=== PATIENT | female | born 1965 | race African-American/Black ===

== ENCOUNTER 2021-11-11 04:50 | Inpatient (IN) | payer SELFPAY ==
[2021-11-11] VITALS (36 sets, daily range): BP systolic 77–109; BP diastolic 52–74
[~2021-11-11] VITALS: Ht 165.1 cm; Wt 61.2 kg
[2021-11-11] MEDS ORDERED: NOREPINEPHRINE VIAL 8 MG in IV DEXTROSE 5% 250 ML IV PRN (05:15)
[2021-11-11] MEDS ORDERED: 0.9 % SODIUM CHLORIDE 10 ML DISP.SYRIN. IV PRN (05:45)
[2021-11-11 05:58] LABS: CALCIUM 6.7 mg/dL (8.5-10.1); GFR 69.4; MAGNESIUM 1.5 mg/dL (1.8-2.4); PHOSPHORUS 2.8 mg/dL (2.6-4.7); POTASSIUM 3.9 mmol/L (3.5-5.1)
[2021-11-11 06:10] LABS: BASO % 0 % (0-3); EOS % 0 % (0-3); HEMATOCRIT 18.1 % (36.0-47.0); LYMPH # 2.4 x10^3/uL (1.0-4.8); LYMPH % 8 % (24-48); MEAN CORPUSCULAR HEMOGLOBIN 26 pg (25-35); MEAN CORPUSCULAR HGB CONC 29 g/dL (31-37); MEAN CORPUSCULAR VOLUME 90 fL (79-100); MONO # 0.9 x10^3/uL (0.0-1.1); MONO % 3 % (0-9); NEUT # 26.9 x10^3/uL (1.8-7.7); NEUT % 89 % (31-73); PLATELET COUNT 484 x10^3/uL (140-400); RED BLOOD COUNT 2.02 x10^6/uL (3.50-5.40); RED CELL DISTRIBUTION WIDTH 23.9 % (11.5-14.5); WHITE BLOOD COUNT 30.2 x10^3/uL (4.0-11.0)
[2021-11-11 06:17] LABS: HEMOGLOBIN 5.3 g/dL (12.0-15.5)
[2021-11-11] MEDS ORDERED: IV NORMAL SALINE 1000ML BAG 1,000 ML IV ONE ×2 (07:00)
--- NOTE | 2021-11-11 07:13 | PDOC1 ---
History and Physical Date of Admission Date of Admission DATE: 11/11/21 TIME: 07:09 Identification/Chief Complaint Chief Complaint Found down Source Source: Chart review History of Present Illness History of Present Illness Ms Mcintosh is a 56 yo female with PMHx HTN who was brought to [facility] in [place], [place] after she was found down by EMS because the neighbors called the police due to a dog barking our patient was found on the ground in the doorway half and half outside the house at the back door and minimally responsive given Narcan in the field by police and did not respond to this. Transferred from [facility] was found at home that was littered with liquor bottles and she was unkempt. Hypotensive on arrival 50/30 central line Levophed therapy initiated Hb noted to be 4.5. WBC 16.1, Hb 4.5, platelets 553, NA 146, K3.4, HCO3 6, anion gap 35, BUN 12, CR 1.3, AST 440, ALT 81, bilirubin 5.1, calcium 7.9, alkaline phosphatase 547, albumin 1.4, lipase 2691, ammonia 45, NT proBNP 231, urinalysis elevated specific gravity with proteinuria ketonuria bilirubin, negative nitrites negative leuk esterase. Rapid COVID 19 antigen negative. INR 1.2, D-dimer 2.23, ethanol 53 mg/Margaret, lactic acid 8.1, high-sensitivity troponin is 7 ABG 7.051/17/188 on 4 L/min nasal cannula EKG sinus rate of 73 bpm left bundle branch block QTC [address] segment elevations or TWI Chest radiograph with no acute abnormalities. CT head without acute abnormalities CT chest no pulmonary embolism CT abdomen pelvis with severe hepatic steatosis, gallstones and inflammation of the mons pubis with small 9 mm abscess along its left aspect. [facility] more awake and alert after IV fluid resuscitation still requiring low-dose Levophed to maintain blood pressure. She is able to relate that she has lost approximately 40 pounds over the last 3 months and noted painful swelling of her left labia majora and was afraid to go see a physician because she lacks insurance. She has been living in [facility] for the last 4 years has a son in [place] where she used to live and as well as [place]. She does smoke every day and drinks half a pint of alcohol at least 3 days a week. States she does not use illicit drugs. Historically she was diagnosed with hypertension and has not been on any medications for this. She had a hysterectomy over 20 years ago. Past Medical History Cardiovascular: HTN Psych: Addictions Past Surgical History Past Surgical History: Hysterectomy Family History Family History: Hypertension Social History Smoke: 1 pack per day ALCOHOL: heavy Drugs: None Current Medications Current Medications Current Medications Norepinephrine Bitartrate 8 mg/ Dextrose 258 ml @ 11.784 mls/ hr CONT PRN IV PER PROTOCOL Last administered on 11/11/21at 05:09; Start 11/11/21 at 05:15 Sodium Chloride (Normal Saline Flush) 3 ml QSHIFT PRN IV AFTER MEDS AND BLOOD DRAWS; Start 11/11/21 at 05:45 Piperacillin Sod/ Tazobactam Sod (Zosyn Per Pharmacy) 1 each PRN DAILY MC ; Start 11/11/21 at 08:00; Status UNV Sodium Chloride 1,000 ml @ 125 mls/hr 1X ONCE IV ; Start 11/11/21 at 07:00; Stop 11/11/21 at 14:59 Sodium Chloride 1,000 ml @ 1,000 mls/hr 1X ONCE IV Last administered on 11/11/21at 06:55; Start 11/11/21 at 07:00; Stop 11/11/21 at 07:59 Magnesium Sulfate 100 ml @ 25 mls/hr 1X ONCE IV ; Start 11/11/21 at 07:30; Stop 11/11/21 at 11:29 Vancomycin HCl 1.5 gm/Sodium Chloride 500 ml @ 250 mls/hr 1X ONCE IV ; Start 11/11/21 at 07:30; Stop 11/11/21 at 09:29 Vancomycin HCl (Vanco Per Pharmacy) 1 each PRN DAILY PRN MC SEE COMMENTS; Start 11/11/21 at 07:15 Multivitamins 10 ml/Thiamine HCl 100 mg/Folic Acid 1 mg/Sodium Chloride 1,011.2 ml @ 100 mls/ hr 1X ONCE IV ; Start 11/11/21 at 07:15; Stop 11/11/21 at 17:21; Status UNV Lorazepam (Ativan Inj) 1 mg PRN Q1HR PRN IV For CIWA 8-14; Start 11/11/21 at 07:15; Status UNV Lorazepam (Ativan Inj) 2 mg PRN Q1HR PRN IV For CIWA 15 or greater; Start 11/11/21 at 07:15; Status UNV Haloperidol Lactate (Haldol Inj) 5 mg PRN Q4HRS PRN IVP Hallucinatns,Confusn,Delirium; Start 11/11/21 at 07:15; Status UNV Diphenhydramine HCl (Benadryl) 25 mg PRN Q15MIN PRN IVP EPS symptoms 2'Haldol admin; Start 11/11/21 at 07:15; Status UNV Allergies Allergies: Coded Allergies: Penicillins (Verified Allergy, Intermediate, 11/11/21) ROS General: YES: Fatigue, Malaise; No: Chills, Night Sweats, Appetite, Other PSYCHOLOGICAL ROS: No: Anxiety, Behavioral Disorder, Concentration difficultie, Decreased libido, Depression, Disorientation, Hallucinations, Hostility, Irritablity, Memory difficulties, Mood Swings, Obsessive thoughts, Physical abuse, Sexual abuse, Sleep disturbances, Suicidal ideation, Other Eyes: No Blurry vision, No Decreased vision, No Double vision, No Dry eyes, No Excessive tearing, No Eye Pain, No Itchy Eyes, No Loss of vision, No Photophobia, No Scotomata, No Uses contacts, No Uses glasses, No Other HEENT: No: Heacaches, Visual Changes, Hearing change, Nasal congestion, Nasal d ischarge, Oral lesions, Sinus pain, Sore Throat, Epistaxis, Sneezing, Snoring, Tinnitus, Vertigo, Vocal changes, Other ALLERGY AND IMMUNOLOGY: No: Hives, Insect Bite Sensitivity, Itchy/Watery Eyes, Nasal Congestion, Post Nasal Drip, Seasonal Allergies, Other Hematological and Lymphatic: No: Bleeding Problems, Blood Clots, Blood Transfusions, Brusing, Night Sweats, Pallor, Swollen Lymph Nodes, Other ENDOCRINE: No: Breast Changes, Galactorrhea, Hair Pattern Changes, Hot Flashes, Malaise/lethargy, Mood Swings, Palpitations, Polydipsia/polyuria, Skin Changes, Temperature Intolerance, Unexpected Weight Changes, Other Breast: No New/Changing Breast Lumps, No Nipple changes, No Nipple discharge, No Other Respiratory: No: Cough, Hemoptysis, Orthopnea, Pleuritic Pain, Shortness of ranjit ath, SOB with excertion, Sputum Changes, Stridor, Tachypnea, Wheezing, Other Cardiovascular: No Chest Pain, No Palpitations, No Orthopnea, No Paroxysmal Noc. Dyspnea, No Edema, No Lt Headedness, No Other Gastrointestinal: No Nausea, No Vomiting, No Abdominal Pain, No Diarrhea, No Constipation, No Melena, No Hematochezia, No Other Genitourinary: No Dysuria, No Frequency, No Incontinence, No Hematuria, No Retention, No Discharge, No Urgency, No Pain, No Flank Pain, No Other, No , No , No , No , No , No , No Musculoskeletal: No Gait Disturbance, No Joint Pain, No Joint Stiffness, No Joint Swelling, No Muscle Pain, No Muscular Weakness, No Pain In:, No Swelling In:, No Other Neurological: No Behavorial Changes, No Bowel/Bladder ControlChng, No Confusion, No Dizziness, No Gait Disturbance, No Headaches, No Impaired Coord/balance, No Memory Loss, No Numbness/Tingling, No Seizures, No Speech Problems, No Tremors, No Visual Changes, No Weakness, No Other Skin: No Dry Skin, No Eczema, No Hair Changes, No Lumps, No Mole Changes, No Mottling, No Nail Changes, No Pruritus, No Rash, No Skin Lesion Changes, No Other, No Acne Physical Exam General: Alert, Oriented X3, Cooperative, mild distress HEENT: Atraumatic, PERRLA, EOMI, Other (Pale oral mucosa) Lungs: Clear to auscultation, Normal air movement Heart: S1S2, RRR, no thrills, no rubs, no gallops, no murmurs Abdomen: Normal bowel sounds, Soft, No tenderness, No hepatosplenomegaly, No masses Rectal Exam: not examined PELVIC: Swelling (Left mons pubis swollen), Tenderness Extremities: No clubbing, No cyanosis, No edema, Normal pulses, No tenderness/swelling Skin: No rashes, No breakdown, No significant lesion Neuro: Normal speech, Strength at 5/5 X4 ext, Normal tone, Sensation intact, Cranial nerves 3-12 NL, Reflexes 2+ Psych/Mental Status: Mental status NL, Mood NL Vitals Vitals Vital Signs Date Time Temp Pulse Resp B/P (MAP) Pulse Ox O2 Delivery O2 Flow Rate FiO2 11/11/21 05:30 Room Air 11/11/21 05:15 110 15 85/56 100 11/11/21 05:00 97.5 97.5 Labs Labs Laboratory Tests Test 11/11/21 05:09 11/11/21 05:10 Glucose (Fingerstick) 171 mg/dL (70-99) White Blood Count 30.2 x10^3/uL (4.0-11.0) Red Blood Count 2.02 x10^6/uL (3.50-5.40) Hemoglobin 5.3 g/dL (12.0-15.5) Hematocrit 18.1 % (36.0-47.0) Mean Corpuscular Volume 90 fL (79-100) Mean Corpuscular Hemoglobin 26 pg (25-35) Mean Corpuscular Hemoglobin Concent 29 g/dL (31-37) Red Cell Distribution Width 23.9 % (11.5-14.5) Platelet Count 484 x10^3/uL (140-400) Neutrophils (%) (Auto) 89 % (31-73) Lymphocytes (%) (Auto) 8 % (24-48) Monocytes (%) (Auto) 3 % (0-9) Eosinophils (%) (Auto) 0 % (0-3) Basophils (%) (Auto) 0 % (0-3) Neutrophils # (Auto) 26.9 x10^3/uL (1.8-7.7) Lymphocytes # (Auto) 2.4 x10^3/uL (1.0-4.8) Monocytes # (Auto) 0.9 x10^3/uL (0.0-1.1) Eosinophils # (Auto) 0.0 x10^3/uL (0.0-0.7) Basophils # (Auto) 0.0 x10^3/uL (0.0-0.2) Sodium Level 143 mmol/L (136-145) Potassium Level 3.9 mmol/L (3.5-5.1) Chloride Level 106 mmol/L (98-107) Carbon Dioxide Level 8 mmol/L (21-32) Anion Gap 29 (6-14) Blood Urea Nitrogen 11 mg/dL (7-20) Creatinine 1.0 mg/dL (0.6-1.0) Estimated GFR (Cockcroft-Gault) 69.4 Glucose Level 165 mg/dL (70-99) Calcium Level 6.7 mg/dL (8.5-10.1) Phosphorus Level 2.8 mg/dL (2.6-4.7) Magnesium Level 1.5 mg/dL (1.8-2.4) Laboratory Tests Test 11/11/21 05:09 11/11/21 05:10 Glucose (Fingerstick) 171 mg/dL (70-99) White Blood Count 30.2 x10^3/uL (4.0-11.0) Red Blood Count 2.02 x10^6/uL (3.50-5.40) Hemoglobin 5.3 g/dL (12.0-15.5) Hematocrit 18.1 % (36.0-47.0) Mean Corpuscular Volume 90 fL (79-100) Mean Corpuscular Hemoglobin 26 pg (25-35) Mean Corpuscular Hemoglobin Concent 29 g/dL (31-37) Red Cell Distribution Width 23.9 % (11.5-14.5) Platelet Count 484 x10^3/uL (140-400) Neutrophils (%) (Auto) 89 % (31-73) Lymphocytes (%) (Auto) 8 % (24-48) Monocytes (%) (Auto) 3 % (0-9) Eosinophils (%) (Auto) 0 % (0-3) Basophils (%) (Auto) 0 % (0-3) Neutrophils # (Auto) 26.9 x10^3/uL (1.8-7.7) Lymphocytes # (Auto) 2.4 x10^3/uL (1.0-4.8) Monocytes # (Auto) 0.9 x10^3/uL (0.0-1.1) Eosinophils # (Auto) 0.0 x10^3/uL (0.0-0.7) Basophils # (Auto) 0.0 x10^3/uL (0.0-0.2) Sodium Level 143 mmol/L (136-145) Potassium Level 3.9 mmol/L (3.5-5.1) Chloride Level 106 mmol/L (98-107) Carbon Dioxide Level 8 mmol/L (21-32) Anion Gap 29 (6-14) Blood Urea Nitrogen 11 mg/dL (7-20) Creatinine 1.0 mg/dL (0.6-1.0) Estimated GFR (Cockcroft-Gault) 69.4 Glucose Level 165 mg/dL (70-99) Calcium Level 6.7 mg/dL (8.5-10.1) Phosphorus Level 2.8 mg/dL (2.6-4.7) Magnesium Level 1.5 mg/dL (1.8-2.4) Images Images Chest radiograph portable: at [place] [id number] on 11/10/21 Cardiovascular: Heart is normal size pulmonary vascularity appears normal. Mediastinum mediastinal contour and hilar configuration are within normal limits. Lungs there are no acute appearing infiltrates no pleural effusions identified. Impression: No acute radiographic abnormality in the chest CT head w/o: Unremarkable CT head VTE Prophylaxis Ordered VTE Prophylaxis Devices: No VTE Pharmacological Prophylaxi: Yes Assessment/Plan Assessment/Plan Acute encephalopathy -metabolic from septic shock, alcohol. Monitor mental status Acute anemia - transfuse to maintain Hb >7. No clear loss, she denies GI losses. Abnormal weight loss -unintentional. Has not had any cancer screenings in 10 years never had a colonoscopy CT chest abdomen pelvis with no discrete masses other than early mons pubis abscess. Septic shock - no clear source outside of possible vaginal abscess. Blood cultures obtained prior to transfer. Will f/u results. Cont empiric vancomycin, rocephin. ID consulted. Wean pressors as tolerated Vaginal swelling/abscess -present for 3 months. No real Guynn follow-up since hysterectomy 20 years ago. 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 Empiric vancomycin and Rocephin ordered. Will add on syphilis and GC testing. Lactic acidosis - likely due to septic shock. Metabolic acidosis - due to sepsis, alcohol JASE - likely vasomotor nephropathy from septic shock. Will monitor renal function Right forehead laceration - likely from fall. Negative CT head. [address] Transaminitis - consistent with alcoholic hepatitis pattern. Some shock liver likely as well. Will monitor LFTs. Banana bag Alcohol abuse - CIWA in place, 1x banana bag Severe protein calorie malnutrition - due to poor eating habits and alcohol abuse. FEN - Regular diet PPX - holding lovenox for acute anemia FULL CODE Dispo - ICU for septic shock CC time 42 minutes Justifications for Admission Other Justification ANGEL SANTOS MD Nov 11, 2021 07:12
[2021-11-11] MEDS ORDERED: HALOPERIDOL LACTATE 5 MG/ML VIAL. IVP PRN (07:15)
[2021-11-11] MEDS ORDERED: diphenhydrAMINE 50 MG/ML VIAL IVP PRN (07:15)
[2021-11-11] MEDS ORDERED: VANCOMYCIN 1.5 GM in IV NORMAL SALINE 500ML BAG 500 ML IV ONE (07:30)
[2021-11-11] MEDS ORDERED: MAGNESIUM SULFATE 4GM 100 ML IV ONE (07:30)
[2021-11-11 07:57] LABS: % BANDS 5 % (0-9); % LYMPHS 3 % (24-48); % MONOS 8 % (0-10); % SEGS 84 % (35-66); PLT ESTIMATE INCREASED (ADEQUATE)
[2021-11-11 07:58] LABS: ANISOCYTOSIS PRESENT; BIZZARE CELLS PRESENT; BURR CELLS PRESENT; HYPOCHROMIA PRESENT; MICROCYTOSIS PRESENT; POIKILOCYTOSIS PRESENT; TARGET CELLS PRESENT
[2021-11-11] MEDS ORDERED: PIP/TAZO PER PHARMACY MC SCH (08:00)
[2021-11-11] MEDS ORDERED: MULTIVIT INFUSN,ADULT 4,VIT K 10 ML, THIAMINE INJ 100 MG, FOLIC ACID INJ 1 MG in IV NOR... IV ONE (08:00)
--- NOTE | 2021-11-11 08:05 | RAD ---
Single view chest dated 11/11/2021 8:02 AM: COMPARISON: None Clinical Indication: Sepsis. Findings: Single upright portable exam of the chest was performed. Heart and mediastinal contours are stable. R ight internal jugular central catheter with tip to the cavoatrial junction. Lungs are somewhat hyperi nflated but otherwise clear. No consolidation or pleural effusion. No pneumothorax. IMPRESSION: 1. Right IJ catheter with no evidence of pneumothorax. 2. Clear lungs. Electronically signed by: Talha Guzman MD (11/11/2021 8:03 AM) [id number]
[2021-11-11] MEDS ORDERED: ONDANSETRON PF 4 MG/2 ML VIAL. IVP PRN (08:15)
[2021-11-11] MEDS ORDERED: ACETAMINOPHEN 325 MG TABLET. PO PRN (08:15)
[2021-11-11] MEDS ORDERED: fentaNYL PF VIAL 100 MCG/2 ML VIAL IVP PRN (08:15)
[2021-11-11] MEDS ORDERED: LACTULOSE 20 GM/30 ML SOLUTION. PO PRN (08:15)
[2021-11-11] MEDS ORDERED: cefTRIAXone IV Push 1 GM VIAL. IVP SCH (09:00)
[2021-11-11] MEDS: IV NORMAL SALINE 1000ML BAG 1,000 ML IV SCH ×2 (09:17→21:13)
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
[2021-11-11 09:54] LABS: PROTHROMBIN TIME PATIENT 16.5 SEC (11.7-14.0)
[2021-11-11] MEDS: NICOTINE 21MG PATCH. TD SCH (09:57)
[2021-11-11] MEDS ORDERED: BENZOCAINE/MENTHOL LOZENGE. PO PRN (10:00)
[2021-11-11] MEDS: VANCOMYCIN PER PHARMACY MC PRN (11:37)
--- NOTE | 2021-11-11 11:37 | NUR ---
Pharmacy Vancomycin Dosing Note S:Consulted to monitor and dose vancomycin started 11/11/21. O:AGAPITO MADISON is a 56 year old F with Abscess Cellulitis Sepsis . Height: 5 feet, 5 inches Weight: 60.9 kg [place] Body Weight: 57.00 Adjusted Body Weight: 58.56 Dosing Weight: Actual Other Antibiotics: ROCEPHIN LABS: Last BUN: 11 Last Creatinine: 1 Creatinine Clearance: 59 mL/min Last WBC: 30.2 Last Procalcitonin: Tmax (past 24 hours): 98 Microbiology: I/O: Drug Levels: Last level: on at Last dose given 11/11/21 at 0837 Vancomycin Dosing: Loading Dose: 1500 mg x1 Dosing Weight: Actual Target Trough: 15-20 A: Based on: body weight and renal function P: 1. After loading dose, start Vancomycin 1000 mg IV q12h 2. Follow up Trough level on 11/12/21 at 2030 3. Pharmacy will continue to monitor, follow and adjust therapy as needed. [facility], 11/11/21 [id number]
[2021-11-11 13:25] LABS: HEMATOCRIT 21.2 % (36.0-47.0)
[2021-11-11 13:29] LABS: HEMOGLOBIN 6.5 g/dL (12.0-15.5)
[2021-11-11] MEDS ORDERED: PIPERACILLIN/TAZOBACTAM 3.375 GM in IV NORMAL SALINE 50ML 50 ML IV SCH (14:30)
[2021-11-11] MEDS: PIPERACILLIN/TAZOBACTAM 3.375 GM in IV NORMAL SALINE 50ML 50 ML IV SCH (16:21)
--- NOTE | 2021-11-11 16:38 | CONS ---
DATE OF CONSULTATION: 11/11/2021 REFERRING PHYSICIAN: Frankie Mccann MD. REASON FOR CONSULTATION: Labial abscess, antibiotic management. HISTORY OF PRESENT ILLNESS: A 56-year-old female with history of hypertension, ETOH dependence who was brought to [facility] after she was found by EMS as neighbors called her with altered mental status. She received Narcan in the field by police and did not respond to this. She was transferred from [facility] littered with liquor bottles and was unkempt. She was hypotensive requiring central line. Levophed was initiated. Hemoglobin was found to be 4.5. WBC at [place] was 16.1. Creatinine 1.3, lipase of 2691, ammonia of 45. BNP of 231. UA showed proteinuria. Rapid COVID antigen was negative. D-dimer was 2.23. Ethanol level was 53. Lactate of 8.1. Chest x-ray did not show any acute abnormality. CT head was negative for any acute process. CTA was negative for pulmonary embolism. CT abdomen and pelvis showed severe hepatic steatosis, gallstones and inflammation of the mons pubis with abscess along its left lateral aspect. The patient currently is on Levophed, is currently getting blood transfusion, also received blood transfusion at [place]. Currently, she is on IV vancomycin and ceftriaxone, was evaluated by COMMUNITY OUTREACH COORDINATOR. Plan is for repeat CT and maybe undergoing I and D tomorrow. The patient continues to smoke, ETOH use. Denies any illicit drug use. 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 She has had left labial mass for about 3 months with foul smelling drainage. PAST MEDICAL HISTORY: Hypertension, hysterectomy 20 years ago, addiction. PAST SURGICAL HISTORY: Hysterectomy. FAMILY HISTORY: As per HPI. SOCIAL HISTORY: Positive for smoking, ETOH. No drugs. Lives alone. CURRENT MEDICATIONS: IV vancomycin, ceftriaxone, Levophed. Other medications reviewed in medication list. ALLERGIES: PENICILLIN, HIVES. Also, the patient states, has tolerated amoxicillin well. REVIEW OF SYSTEMS: Negative except for above in HPI. Does have fatigue. PHYSICAL EXAMINATION: VITAL SIGNS: Temperature 98, pulse 101, respirations 16, blood pressure 101/69, oxygen saturation 100% on room air. GENERAL: Alert, oriented x 3 female, lying in bed comfortably, in no acute distress. HEENT: Normocephalic, atraumatic. Anicteric. No thrush. Oral mucosa pale. NECK: Supple, no JVD. LUNGS: Clear bilaterally. HEART: S1, S2. No murmurs. ABDOMEN: Soft, nontender, nondistended, no rebound or guarding. PELVIS: Left mons pubis swelling present, foul smelling drainage present, tenderness present. Vaginal exam not done. EXTREMITIES: No edema, no cyanosis, unkempt. Hyperkeratosis of both feet with calluses on the plantar aspect. DERMATOLOGIC: Warm, dry, no generalized rash except for above. NEUROLOGIC: Alert, oriented x 3, grossly nonfocal. PSYCHIATRIC: Calm and cooperative. LABORATORY DATA: WBC is 30.2 here, hemoglobin of 6.5, hematocrit 21.2, platelets 484. Lactate here was 0.8. Sodium 143, potassium 3.9, chloride 106, bicarb 8, BUN 11, creatinine 1.0. Lactate dehydrogenase 282. IMAGING: None here. MICRO: None here. IMPRESSION: 1. Severe sepsis. 2. Leukocytosis. 3. Anemia, severe, status post blood transfusions. 4. Severe metabolic acidosis. 5. Left labial abscess. 6. Hypertension. 7. ETOH dependence. 8. Smoking. 9. Poor living condition. 10. History of ALLERGIES TO PENICILLIN WITH HIVES,pt states she has tolerated amoxicillin. RECOMMENDATIONS: 1. Continue IV vancomycin. Monitor renal functions closely. Pharmacy to assist with dosing. 2. Change ceftriaxone to Zosyn. 3. COMMUNITY OUTREACH COORDINATOR has evaluated the patient. 4. Plans are for possible I and D tomorrow. 5. Send fluid for cultures. 6. Monitor labs and cultures. 7. Follow up blood cultures at [place]. 8. Continue supportive care. 9. Continue local wound care as directed. Thank you for consulting Infectious Disease to participate in this patient's care. We will follow along with you. Discussed with RN. CCT: 40 mins NICOLE/NIS/SOT DR: NICOLE/milena TID: [id number] MTDD
[2021-11-11 18:06] LABS: HEMATOCRIT 24.9 % (36.0-47.0); HEMOGLOBIN 7.9 g/dL (12.0-15.5)
[2021-11-11] MEDS: VANCOMYCIN 1 GM in IV NORMAL SALINE 250ML 250 ML IV SCH (21:12)
[2021-11-11] MEDS: LACTOBACILLUS RHAMNOSUS GG 1 CAPSULE. PO SCH (21:12)
[2021-11-12] VITALS (21 sets, daily range): BP systolic 84–105; BP diastolic 49–71
[2021-11-12] MEDS: PIPERACILLIN/TAZOBACTAM 3.375 GM in IV NORMAL SALINE 50ML 50 ML IV SCH ×4 (00:01→17:46)
[2021-11-12 03:10] LABS: HEMOGLOBIN A1C 4.3 % (4.8-5.6)
[2021-11-12 06:08] LABS: CALCIUM 6.4 mg/dL (8.5-10.1); CREATININE 0.9 mg/dL (0.6-1.0); GFR 78.4; MAGNESIUM 1.8 mg/dL (1.8-2.4)
[2021-11-12 06:25] LABS: POTASSIUM 2.7 mmol/L (3.5-5.1)
[2021-11-12] MEDS: POTASSIUM CHLORIDE 20MEQ 100 ML IV SCH ×3 (06:47→08:51)
[2021-11-12 06:59] LABS: BASO % 0 % (0-3); EOS # 0.1 x10^3/uL (0.0-0.7); EOS % 0 % (0-3); HEMATOCRIT 24.2 % (36.0-47.0); HEMOGLOBIN 7.8 g/dL (12.0-15.5); LYMPH # 1.3 x10^3/uL (1.0-4.8); LYMPH % 8 % (24-48); MEAN CORPUSCULAR HEMOGLOBIN 27 pg (25-35); MEAN CORPUSCULAR HGB CONC 32 g/dL (31-37); MEAN CORPUSCULAR VOLUME 85 fL (79-100); MONO # 0.5 x10^3/uL (0.0-1.1); MONO % 3 % (0-9); NEUT # 13.7 x10^3/uL (1.8-7.7); NEUT % 88 % (31-73); PLATELET COUNT 309 x10^3/uL (140-400); RED BLOOD COUNT 2.86 x10^6/uL (3.50-5.40); RED CELL DISTRIBUTION WIDTH 21.1 % (11.5-14.5); WHITE BLOOD COUNT 15.5 x10^3/uL (4.0-11.0)
--- NOTE | 2021-11-12 08:56 | PDOC ---
[employer] PROGRESS NOTE Date of Service DOS: DATE: 11/12/21 TIME: 08:48 Chief Complaint Chief Complaint Acute encephalopathy -metabolic from septic shock, alcohol. Monitor mental status Acute anemia - transfuse to maintain Hb >7. No clear loss, she denies GI losses. Abnormal weight loss -unintentional. Has not had any cancer screenings in 10 years never had a colonoscopy CT chest abdomen pelvis with no discrete masses other than early mons pubis abscess. Septic shock - no clear source outside of possible vaginal abscess. Blood cultures obtained prior to transfer. Will f/u results. Cont empiric vancomycin, rocephin. ID consulted. Wean pressors as tolerated Vaginal swelling/abscess -present for 3 months. No real [facility] follow-up since hysterectomy 20 years ago. fur blower operator consulted. Empiric vancomycin and Rocephin ordered. Will add on syphilis and GC testing. Lactic acidosis - likely due to septic shock. Metabolic acidosis - due to sepsis, alcohol JASE - likely vasomotor nephropathy from septic shock. Will monitor renal function Right forehead laceration - likely from fall. Negative CT head. [address] Transaminitis - consistent with alcoholic hepatitis pattern. Some shock liver likely as well. Will monitor LFTs. Banana bag Alcohol abuse - CIWA in place, 1x banana bag Severe protein calorie malnutrition - due to poor eating habits and alcohol abuse. FEN - Regular diet PPX - holding lovenox for acute anemia FULL CODE Dispo - ICU for septic shock CC time 42 minutes History of Present Illness History of Present Illness Ms Mcintosh is a 56 yo female with PMHx HTN who was brought to [facility] in [place], [place] after she was found down by EMS because the neighbors called the police due to a dog barking our patient was found on the ground in the doorway half and half outside the house at the back door and minimally responsive given Narcan in the field by police and did not respond to this. Transferred from [facility] was found at home that was littered with liquor bottles and she was unkempt. Hypotensive on arrival 50/30 central line Levophed therapy initiated Hb noted to be 4.5. WBC 16.1, Hb 4.5, platelets 553, NA 146, K3.4, HCO3 6, anion gap 35, BUN 12, CR 1.3, AST 440, ALT 81, bilirubin 5.1, calcium 7.9, alkaline phosphatase 547, albumin 1.4, lipase 2691, ammonia 45, NT proBNP 231, urinalysis elevated specific gravity with proteinuria ketonuria bilirubin, negative nitrites negative leuk esterase. Rapid COVID 19 antigen negative. INR 1.2, D-dimer 2.23, ethanol 53 mg/Margaret, lactic acid 8.1, high-sensitivity troponin is 7 ABG 7.051/17/188 on 4 L/min nasal cannula EKG sinus rate of 73 bpm left bundle branch block QTC [address] segment elevations or TWI Chest radiograph with no acute abnormalities. CT head without acute abnormalities CT chest no pulmonary embolism CT abdomen pelvis with severe hepatic steatosis, gallstones and inflammation of the mons pubis with small 9 mm abscess along its left aspect. Seen bedside [facility] more awake and alert after IV fluid resuscitation still requiring low-dose Levophed to maintain blood pressure. She is able to relate that she has lost approximately 40 pounds over the last 3 months and noted painful swelling of her left labia majora and was afraid to go see a physician because she lacks insurance. She has been living in [facility] for the last 4 years has a son in [place] where she used to live and as well as [place]. She does smoke every day and drinks half a pint of alcohol at least 3 days a week. States she does not use illicit drugs. Historically she was diagnosed with hypertension and has not been on any medications for this. She had a hysterectomy over 20 years ago. 11/11: Hb 7.8. Heart rate improved blood pressure still requiring low-dose Levophed. Overall she is feeling a little bit improved still very weak. Appetite this morning. CT pelvis this morning. Vitals/I&O Vitals/I&O: Vital Signs Date Time Temp Pulse Resp B/P (MAP) Pulse Ox O2 Delivery O2 Flow Rate FiO2 11/12/21 08:04 107 20 99/63 98 Room Air 11/12/21 07:12 97.8 97.8 I & O 11/11/21 11/11/21 11/12/21 15:00 23:00 07:00 Intake Total 1712 ml 2154 ml 6444.8 ml Output Total 335 ml 225 ml 300 ml Balance 1377 ml 1929 ml 6144.8 ml Physical Exam General: Alert, Oriented X3, Cooperative, No acute distress Heart: Regular rate, Normal S1, Normal S2, No murmurs Abdomen: Normal bowel sounds, Soft, No tenderness, No hepatosplenomegaly, No masses Extremities: No clubbing, No cyanosis, No edema, Normal pulses, No tenderness/swelling Skin: No rashes, No breakdown Labs Labs: Laboratory Tests Test 11/11/21 09:10 11/11/21 13:10 11/11/21 18:00 11/12/21 05:40 Red Blood Count 1.80 x10^6/uL (3.50-5.70) 2.86 x10^6/uL (3.50-5.40) Absolute Reticulocyte Count 0.015 x10^6/uL (0.020-0.120) Percent Reticulocyte Count 0.9 % (0.5-2.3) Immature Reticulocyte Fraction 0.54 (0.20-0.60) Prothrombin Time 16.5 SEC (11.7-14.0) Prothromb Time International Ratio 1.3 (0.8-1.1) Activated Partial Thromboplast Time 36 SEC (24-38) Lactic Acid Level 0.8 mmol/L (0.4-2.0) Lactate Dehydrogenase 282 U/L (81-234) Hemoglobin 6.5 g/dL (12.0-15.5) 7.9 g/dL (12.0-15.5) 7.8 g/dL (12.0-15.5) Hematocrit 21.2 % (36.0-47.0) 24.9 % (36.0-47.0) 24.2 % (36.0-47.0) Mean Corpuscular Hemoglobin Concent 31 g/dL (31-37) 32 g/dL (31-37) 32 g/dL (31-37) White Blood Count 15.5 x10^3/uL (4.0-11.0) Mean Corpuscular Volume 85 fL (79-100) Mean Corpuscular Hemoglobin 27 pg (25-35) Red Cell Distribution Width 21.1 % (11.5-14.5) Platelet Count 309 x10^3/uL (140-400) Neutrophils (%) (Auto) 88 % (31-73) Lymphocytes (%) (Auto) 8 % (24-48) Monocytes (%) (Auto) 3 % (0-9) Eosinophils (%) (Auto) 0 % (0-3) Basophils (%) (Auto) 0 % (0-3) Neutrophils # (Auto) 13.7 x10^3/uL (1.8-7.7) Lymphocytes # (Auto) 1.3 x10^3/uL (1.0-4.8) Monocytes # (Auto) 0.5 x10^3/uL (0.0-1.1) Eosinophils # (Auto) 0.1 x10^3/uL (0.0-0.7) Basophils # (Auto) 0.0 x10^3/uL (0.0-0.2) Sodium Level 139 mmol/L (136-145) Potassium Level 2.7 mmol/L (3.5-5.1) Chloride Level 108 mmol/L (98-107) Carbon Dioxide Level 17 mmol/L (21-32) Anion Gap 14 (6-14) Blood Urea Nitrogen 10 mg/dL (7-20) Creatinine 0.9 mg/dL (0.6-1.0) Estimated GFR (Cockcroft-Gault) 78.4 Glucose Level 127 mg/dL (70-99) Calcium Level 6.4 mg/dL (8.5-10.1) Magnesium Level 1.8 mg/dL (1.8-2.4) Comment Review of Relevant I have reviewed the following items dorothy (where applicable) has been applied. Medications: Current Medications Medications (Trade) Dose Ordered Sig/Aubrey Route PRN Reason Start Time Stop Time Status Last Admin Dose Admin Sodium Chloride 1,000 ml @ 75 mls/hr [id number] IV 11/11/21 09:00 11/12/21 11:39 11/11/21 21:13 Ceftriaxone Sodium (Rocephin) 1 gm Q24H IVP 11/11/21 09:00 11/11/21 14:19 DC 11/11/21 09:57 Nicotine (Nicoderm Cq 21mg) 1 patch DAILY TD 11/11/21 10:00 11/11/21 09:57 Throat Lozenges (Cepacol Sore Throat Lozenge) 1 hunter PRN Q2HRS PRN PO SORE THROAT 11/11/21 10:00 11/11/21 09:56 Vancomycin HCl 1 gm/Sodium Chloride 250 ml @ 250 mls/hr Q12H IV 11/11/21 21:00 11/11/21 21:12 Lactobacillus Rhamnosus (Culturellaaron) 1 cap BID PO 11/11/21 21:00 11/11/21 21:12 Piperacillin Sod/ Tazobactam Sod 3.375 gm/Sodium Chloride 50 ml @ 100 mls/hr Q6HRS IV 11/11/21 16:00 11/12/21 05:35 Potassium Chloride/Water 100 ml @ 100 mls/hr Q1H IV 11/12/21 07:30 11/12/21 10:29 11/12/21 08:00 Justifications for Admission Other Justification ANGEL SANTOS MD Nov 12, 2021 08:56
[2021-11-12] MEDS ORDERED: ELECTROLYTE (ICU) PROTOCOL. MC PRN (09:00)
[2021-11-12] MEDS ORDERED: CONTRAST GIVEN. MC PRN (09:30)
[2021-11-12] MEDS ORDERED: IOHEXOL 300 MG/ML 100ML VIAL. IV ONE (09:30)
--- NOTE | 2021-11-12 10:33 | PDOC ---
[employer] PROGRESS NOTE Date of Service: DATE: 11/12/21 TIME: 10:33 Subjective: Pt feels better. She is still a little sore from the fall. Objective: Vital Signs: Vital Signs Date Time Temp Pulse Resp B/P (MAP) Pulse Ox O2 Delivery O2 Flow Rate FiO2 11/11/21 07:00 102 16 95/60 100 Room Air 11/11/21 08:00 98.0 98.0 Vital Signs Date Time Temp Pulse Resp B/P (MAP) Pulse Ox O2 Delivery O2 Flow Rate FiO2 11/12/21 10:18 105 22 101/71 100 Room Air 11/12/21 07:12 97.8 97.8 Labs: Laboratory Tests Test 11/11/21 13:10 11/11/21 18:00 11/12/21 05:40 Hemoglobin 6.5 g/dL (12.0-15.5) *L 7.9 g/dL (12.0-15.5) L 7.8 g/dL (12.0-15.5) L Hematocrit 21.2 % (36.0-47.0) L 24.9 % (36.0-47.0) L 24.2 % (36.0-47.0) L Mean Corpuscular Hemoglobin Concent 31 g/dL (31-37) 32 g/dL (31-37) 32 g/dL (31-37) White Blood Count 15.5 x10^3/uL (4.0-11.0) H Red Blood Count 2.86 x10^6/uL (3.50-5.40) L Mean Corpuscular Volume 85 fL (79-100) # Mean Corpuscular Hemoglobin 27 pg (25-35) Red Cell Distribution Width 21.1 % (11.5-14.5) H Platelet Count 309 x10^3/uL (140-400) Neutrophils (%) (Auto) 88 % (31-73) H Lymphocytes (%) (Auto) 8 % (24-48) L Monocytes (%) (Auto) 3 % (0-9) Eosinophils (%) (Auto) 0 % (0-3) Basophils (%) (Auto) 0 % (0-3) Neutrophils # (Auto) 13.7 x10^3/uL (1.8-7.7) H Lymphocytes # (Auto) 1.3 x10^3/uL (1.0-4.8) Monocytes # (Auto) 0.5 x10^3/uL (0.0-1.1) Eosinophils # (Auto) 0.1 x10^3/uL (0.0-0.7) Basophils # (Auto) 0.0 x10^3/uL (0.0-0.2) Sodium Level 139 mmol/L (136-145) Potassium Level 2.7 mmol/L (3.5-5.1) *L Chloride Level 108 mmol/L (98-107) H Carbon Dioxide Level 17 mmol/L (21-32) L Anion Gap 14 (6-14) Blood Urea Nitrogen 10 mg/dL (7-20) Creatinine 0.9 mg/dL (0.6-1.0) Estimated GFR (Cockcroft-Gault) 78.4 Glucose Level 127 mg/dL (70-99) H Calcium Level 6.4 mg/dL (8.5-10.1) L Magnesium Level 1.8 mg/dL (1.8-2.4) Laboratory Tests 11/11/21 13:10 11/11/21 18:00 11/12/21 05:40 Laboratory Tests 11/12/21 05:40 Laboratory Tests 11/12/21 05:40 Physical Exam: GENERAL: No apparent distress. Alert and oriented. HEENT: Head normocephalic, atraumatic. NECK: Supple LUNGS: Clear to auscultation. HEART: RRR, S1, S2 present, pulses intact ABDOMEN: Soft, positive bowel sounds. EXTREMITIES: No cyanosis or edema. NEUROLOGIC: Normal speech, normal tone PSYCHIATRIC: Normal affect, normal mood. SKIN: No ulceration. Assessment & Plan: A/P 56y transferred after being found at home unconscious 1.) Vulvar lesion left side hypertrophied and nontender. Present for last 3 months. Awaiting final read of CT pelvis 2.) Sepsis ID consulted. WBC 30.2 -> 15.5, BCx pending. Changed regime to Zosyn/Vanc 3.) Severe anemia Hgb 4.5 -> 2U pRBC -> 7.8. Underlining cause could be from several reason (ie malnutrition), unlikely acute blood loss. W/u and tx per hospitalist 4.) Metabolic acidosis - improving 5.) Scant medical care has been hesitant to seek medical care due to insurance issues. 6.) H/o MONICA 7.) Hypotension off pressors. Management per hospitalist 8.) Alcoholism management per hospitalists 9.) PCN All 10.) Will cont to follow HOLLY LAUREN MD Nov 12, 2021 10:33
[2021-11-12] MEDS: VANCOMYCIN 1 GM in IV NORMAL SALINE 250ML 250 ML IV SCH (10:44)
[2021-11-12] MEDS: LACTOBACILLUS RHAMNOSUS GG 1 CAPSULE. PO SCH ×2 (10:44→22:23)
[2021-11-12] MEDS: NICOTINE 21MG PATCH. TD SCH (10:45)
--- NOTE | 2021-11-12 10:56 | RAD ---
CT PELVIS W History: Enlarged left vulva. Concern for abscess. Sepsis. Comparison: None. Technique: CT of the pelvis with intravenous contrast. Findings: There is free fluid in the right midabdomen and pelvis. The visualized small bowel loops are nondiste nded. No colonic wall thickening. Normal appendix. The pelvic vasculature is within normal limits. A Zhou catheter is present within the bladder which is otherwise unremarkable. The uterus is surgica lly absent. No pelvic masses. There is diffuse enlargement and enhancement at the left vulvar soft tissues. Within the area of swel ling in the left labia, there is a thin 1.4 x 0.9 x 1.1 cm fluid attenuation collection with peripher al enhancement (axial image [id number], coronal 36-39). No subcutaneous emphysema. Prominent inguinal lymp h nodes. Diffuse anasarca. Osseous structures are unremarkable. Impression: 1. Asymmetric left vulvar enhancement and edema consistent with cellulitis/phlegmonous change with a small thin central area measuring approximately 1.4 x 0.9 x 1.1 cm demonstrating central fluid atten uation and peripheral enhancement concerning for small/developing abscess. No subcutaneous emphysema. 2. Intra-abdominal pelvic free fluid and body wall anasarca. ------ Exposure: One or more of the following individualized dose reduction techniques were utilized for thi s examination: 1. Automated exposure control 2. Adjustment of the mA and/or kV according to patient size 3. Use of iterative reconstruction technique. Electronically signed by: Sree Acuna MD (11/12/2021 10:53 AM) [id number]
--- NOTE | 2021-11-12 12:35 | PDOC ---
Infectious Disease Note Subjective Subjective pt is awake, feeling good ROS ROS no n/v/d/sob Vital Sign Vital Signs Vital Signs Date Time Temp Pulse Resp B/P (MAP) Pulse Ox O2 Delivery O2 Flow Rate FiO2 11/12/21 11:00 96 22 93/65 100 Room Air 11/12/21 07:12 97.8 97.8 Physical Exam PHYSICAL EXAM GENERAL: Alert, oriented x 3 female, lying in bed comfortably, in no acute distress. HEENT: Normocephalic, atraumatic. Anicteric. No thrush. Oral mucosa pale. NECK: Supple, no JVD. LUNGS: Clear bilaterally. HEART: S1, S2. No murmurs. ABDOMEN: Soft, nontender, nondistended, no rebound or guarding. PELVIS: Left mons pubis swelling present, foul smelling drainage present, tenderness present. Vaginal exam not done. EXTREMITIES: No edema, no cyanosis, unkempt. Hyperkeratosis of both feet with calluses on the plantar aspect. DERMATOLOGIC: Warm, dry, no generalized rash except for above. NEUROLOGIC: Alert, oriented x 3, grossly nonfocal. PSYCHIATRIC: Calm and cooperative. LABORATORY DATA: WBC is 30.2 here, hemoglobin of 6.5, hematocrit 21.2, platelets 484. Lactate here was 0.8. Sodium 143, potassium 3.9, chloride 106, bicarb 8, BUN 11, creatinine 1.0. Lactate dehydrogenase 282. IMAGING: None here. Labs Lab Laboratory Tests Test 11/11/21 13:10 11/11/21 18:00 11/12/21 05:40 Hemoglobin 6.5 g/dL (12.0-15.5) 7.9 g/dL (12.0-15.5) 7.8 g/dL (12.0-15.5) Hematocrit 21.2 % (36.0-47.0) 24.9 % (36.0-47.0) 24.2 % (36.0-47.0) Mean Corpuscular Hemoglobin Concent 31 g/dL (31-37) 32 g/dL (31-37) 32 g/dL (31-37) White Blood Count 15.5 x10^3/uL (4.0-11.0) Red Blood Count 2.86 x10^6/uL (3.50-5.40) Mean Corpuscular Volume 85 fL (79-100) Mean Corpuscular Hemoglobin 27 pg (25-35) Red Cell Distribution Width 21.1 % (11.5-14.5) Platelet Count 309 x10^3/uL (140-400) Neutrophils (%) (Auto) 88 % (31-73) Lymphocytes (%) (Auto) 8 % (24-48) Monocytes (%) (Auto) 3 % (0-9) Eosinophils (%) (Auto) 0 % (0-3) Basophils (%) (Auto) 0 % (0-3) Neutrophils # (Auto) 13.7 x10^3/uL (1.8-7.7) Lymphocytes # (Auto) 1.3 x10^3/uL (1.0-4.8) Monocytes # (Auto) 0.5 x10^3/uL (0.0-1.1) Eosinophils # (Auto) 0.1 x10^3/uL (0.0-0.7) Basophils # (Auto) 0.0 x10^3/uL (0.0-0.2) Sodium Level 139 mmol/L (136-145) Potassium Level 2.7 mmol/L (3.5-5.1) Chloride Level 108 mmol/L (98-107) Carbon Dioxide Level 17 mmol/L (21-32) Anion Gap 14 (6-14) Blood Urea Nitrogen 10 mg/dL (7-20) Creatinine 0.9 mg/dL (0.6-1.0) Estimated GFR (Cockcroft-Gault) 78.4 Glucose Level 127 mg/dL (70-99) Calcium Level 6.4 mg/dL (8.5-10.1) Magnesium Level 1.8 mg/dL (1.8-2.4) Objective Assessment IMPRESSION: 1. Severe sepsis. 2. Leukocytosis. 3. Anemia, severe, status post blood transfusions. 4. Severe metabolic acidosis. 5. Left labial abscess. 6. Hypertension. 7. ETOH dependence. 8. Smoking. 9. Poor living condition. 10. History of ALLERGIES TO PENICILLIN WITH HIVES,pt states she has tolerated amoxicillin. Plan Plan of Care surgery for I and D planned for tomorrow cont antibiotics cont supportive care MANDEEP LUCIO MD Nov 12, 2021 12:35
--- NOTE | 2021-11-12 14:50 | NUR ---
SS following for discharge planning. SS reviewed pt chart and discussed with pt RN. Pt is from home and is currently on room air. ID and Gynecology following. Pt on IV Zosyn and IV Vancomycin. Possible need for I&D soon. Self pay. Med Assist following. SS will continue to follow for discharge planning.
[2021-11-12 21:35] LABS: VANC TR 29.9 mcg/mL (10.0-20.0)
[2021-11-12] MEDS: VANCOMYCIN PER PHARMACY MC PRN (22:40)
--- NOTE | 2021-11-12 22:40 | NUR ---
Pharmacy Vancomycin Dosing Note S:Consulted to monitor and dose vancomycin started 11/11/21. O:AGAPITO MADISON is a 56 year old F with Abscess Cellulitis Sepsis . Height: 5 feet, 5 inches Weight: 61.2 kg Flora Body Weight: 57.00 Adjusted Body Weight: 58.68 Dosing Weight: Actual Other Antibiotics: ROCEPHIN LABS: Last BUN: 11 Last Creatinine: 1 Creatinine Clearance: 59 mL/min Last WBC: 30.2 Last Procalcitonin: Tmax (past 24 hours): 98 Microbiology: I/O: Drug Levels: Last Trough level: 26.7 TRUE TROUGH, LAB TROUGH 29.9 on 11/12/21 at 2030 Last dose given 11/11/21 at 0837 Vancomycin Dosing: Loading Dose: 1500 mg x1 Dosing Weight: Actual Target Trough: 15-20 A: Based on: TRUE TROUGH P: 1. Begin Vancomycin 1000 mg IV q18h 2. Follow up Trough level on 11/14/21 at 1930 3. Pharmacy will continue to monitor, follow and adjust therapy as needed. MORALES BAUTISTA RPH, 11/12/210 Signed: 11/12/21 at 2240 by MORALES BAUTISTA RPH PHA
[2021-11-13] MEDS: PIPERACILLIN/TAZOBACTAM 3.375 GM in IV NORMAL SALINE 50ML 50 ML IV SCH ×5 (00:06→23:56)
[2021-11-13 03:02] VITALS: BP 107/65
[2021-11-13 07:00] VITALS: BP_SYST 102; BP_SYST 113; BP_DIAS 68; BP_DIAS 75
[2021-11-13] MEDS ORDERED: VANCOMYCIN 1 GM in IV NORMAL SALINE 250ML 250 ML IV SCH (08:00)
[2021-11-13] MEDS: LACTOBACILLUS RHAMNOSUS GG 1 CAPSULE. PO SCH ×2 (09:00→21:01)
[2021-11-13 11:00] VITALS: BP 101/66
--- NOTE | 2021-11-13 11:07 | NUR ---
SW following. Discussed with RN, pt from home, room air, regular diet. PT/OT ordered. Pt having labial abscess drained today. Med Assist following for self pay status. SW will continue to follow.
[2021-11-13] MEDS: NICOTINE 21MG PATCH. TD SCH (11:41)
--- NOTE | 2021-11-13 11:58 | PDOC ---
[employer] PROGRESS NOTE Date of Service DOS: DATE: 11/13/21 TIME: 11:49 Chief Complaint Chief Complaint Acute encephalopathy -metabolic from septic shock, alcohol. Monitor mental status Acute anemia - transfuse to maintain Hb >7. No clear loss, she denies GI losses. Abnormal weight loss -unintentional. Has not had any cancer screenings in 10 years never had a colonoscopy CT chest abdomen pelvis with no discrete masses other than early mons pubis abscess. Septic shock - no clear source outside of possible vaginal abscess. Blood cultures obtained prior to transfer. Will f/u results. Cont empiric vancomycin, rocephin. ID consulted. Wean pressors as tolerated Vaginal swelling/abscess -present for 3 months. No real Guynn follow-up since hysterectomy 20 years ago. ultimate hoops scoreboard operator consulted. Empiric vancomycin and Rocephin ordered. Lactic acidosis - likely due to septic shock. Metabolic acidosis - due to sepsis, alcohol JASE - likely vasomotor nephropathy from septic shock. Will monitor renal function Right forehead laceration - likely from fall. Negative CT head. [address] Transaminitis - consistent with alcoholic hepatitis pattern. Some shock liver likely as well. Will monitor LFTs. Banana bag Alcohol abuse - CIWA in place, 1x banana bag Severe protein calorie malnutrition - due to poor eating habits and alcohol abuse. FEN - Regular diet PPX - holding lovenox for acute anemia FULL CODE Dispo - Med/surg History of Present Illness History of Present Illness Ms Mcintosh is a 56 yo female with PMHx HTN who was brought to [facility] in [place], [place] after she was found down by EMS because the neighbors called the police due to a dog barking our patient was found on the ground in the doorway half and half outside the house at the back door and minimally responsive given Narcan in the field by police and did not respond to this. [facility] was found at home that was littered with liquor bottles and she was unkempt. Hypotensive on arrival 50/30 central line Levophed therapy initiated Hb noted to be 4.5. WBC 16.1, Hb 4.5, platelets 553, NA 146, K3.4, HCO3 6, anion gap 35, BUN 12, CR 1.3, AST 440, ALT 81, bilirubin 5.1, calcium 7.9, alkaline phosphatase 547, albumin 1.4, lipase 2691, ammonia 45, NT proBNP 231, urinalysis elevated specific gravity with proteinuria ketonuria bilirubin, negative nitrites negative leuk esterase. Rapid COVID 19 antigen negative. INR 1.2, D-dimer 2.23, ethanol 53 mg/Margaret, lactic acid 8.1, high-sensitivity troponin is 7 ABG 7.051/17/188 on 4 L/min nasal cannula EKG sinus rate of 73 bpm left bundle branch block QTC [address] segment elevations or TWI Chest radiograph with no acute abnormalities. CT head without acute abnormalities CT chest no pulmonary embolism CT abdomen pelvis with severe hepatic steatosis, gallstones and inflammation of the mons pubis with small 9 mm abscess along its left aspect. Seen bedside [facility] more awake and alert after IV fluid resuscitation still requiring low-dose Levophed to maintain blood pressure. She is able to relate that she has lost approximately 40 pounds over the last 3 months and noted painful swelling of her left labia majora and was afraid to go see a physician because she lacks insurance. She has been living in [facility] for the last 4 years has a son in [place] where she used to live and as well as [place]. She does smoke every day and drinks half a pint of alcohol at least 3 days a week. States she does not use illicit drugs. Historically she was diagnosed with hypertension and has not been on any medications for this. She had a hysterectomy over 20 years ago. 11/12: Hb 7.8. HR improved blood pressure still requiring low-dose Levophed. Overall a little bit improved still very weak. Appetite this morning. CT pelvis small abscess, no surg plans. 11/13: Potassium improved awaiting morning labs. Very weak with therapy feels symptomatically improved Hb stable. Transfer to [facility]. Discussed with [employer], Dr. Painting, no surgical plans will manage medically with antibiotics. Negative syphilis negative gonococcal and Chlamydia test. Vitals/I&O Vitals/I&O: Vital Signs Date Time Temp Pulse Resp B/P (MAP) Pulse Ox O2 Delivery O2 Flow Rate FiO2 11/13/21 11:00 98.4 100 16 101/66 (78) 98 Room Air 98.4 I & O 11/12/21 11/12/21 11/13/21 15:00 23:00 07:00 Intake Total 300 ml Output Total 250 ml 150 ml 250 ml Balance -250 ml -150 ml 50 ml Physical Exam Physical Exam: GENERAL: Alert, oriented x 3 female, lying in bed comfortably, in no acute distress. HEENT: Normocephalic, atraumatic. Anicteric. No thrush. Oral mucosa pale. NECK: Supple, no JVD. LUNGS: Clear bilaterally. HEART: S1, S2. No murmurs. ABDOMEN: Soft, nontender, nondistended, no rebound or guarding. PELVIS: Left mons pubis swelling present, foul smelling drainage present, tenderness present. Vaginal exam not done. EXTREMITIES: No edema, no cyanosis, unkempt. Hyperkeratosis of both feet with calluses on the plantar aspect. DERMATOLOGIC: Warm, dry, no generalized rash except for above. NEUROLOGIC: Alert, oriented x 3, grossly nonfocal. PSYCHIATRIC: Calm and cooperative. LABORATORY DATA: WBC is 30.2 here, hemoglobin of 6.5, hematocrit 21.2, platelets 484. Lactate here was 0.8. Sodium 143, potassium 3.9, chloride 106, bicarb 8, BUN 11, creatinine 1.0. Lactate dehydrogenase 282. IMAGING: None here. General: Alert, Oriented X3, Cooperative, No acute distress Heart: Regular rate, Normal S1, Normal S2, No murmurs Abdomen: Normal bowel sounds, Soft, No tenderness, No hepatosplenomegaly, No masses Extremities: No clubbing, No cyanosis, No edema, Normal pulses, No tenderness/swelling Skin: No rashes, No breakdown Labs Labs: Laboratory Tests Test 11/12/21 18:40 11/12/21 21:00 Potassium Level 3.4 mmol/L (3.5-5.1) Vancomycin Level Trough 29.9 mcg/mL (10.0-20.0) Vancomycin Last Dose Date 11/12/21 Vancomycin Last Dose Time 0900 Comment Review of Relevant I have reviewed the following items dorothy (where applicable) has been applied. Medications: Current Medications Medications (Trade) Dose Ordered Sig/Aubrey Route PRN Reason Start Time Stop Time Status Last Admin Dose Admin Vancomycin HCl (Vancomycin Trough Level) 1 each 1X ONCE MC 11/12/21 20:30 11/12/21 20:31 DC 11/12/21 20:30 Vancomycin HCl 1 gm/Sodium Chloride 250 ml @ 250 mls/hr Q18H IV 11/13/21 08:00 11/13/21 11:24 DC 11/13/21 08:00 Justifications for Admission Other Justification ANGEL SANTOS MD Nov 13, 2021 11:58
--- NOTE | 2021-11-13 12:37 | NUR ---
vanegas removed per Dr Valdez's order, 10ml water removed and vanegas removed. pt tolerated well. pt cleaned up and pull up put on per pt request. bedside commode placed near patient.
--- NOTE | 2021-11-13 12:39 | PDOC ---
[employer] PROGRESS NOTE Date of Service: DATE: 11/13/21 TIME: 12:39 Subjective: Discussed plan with pt Objective: Vital Signs: Vital Signs Date Time Temp Pulse Resp B/P (MAP) Pulse Ox O2 Delivery O2 Flow Rate FiO2 11/12/21 07:12 97.8 92 15 97/62 97 Room Air 97.8 Vital Signs Date Time Temp Pulse Resp B/P (MAP) Pulse Ox O2 Delivery O2 Flow Rate FiO2 11/13/21 11:00 98.4 100 16 101/66 (78) 98 Room Air 98.4 Labs: Laboratory Tests Test 11/12/21 18:40 11/12/21 21:00 Potassium Level 3.4 mmol/L (3.5-5.1) L Vancomycin Level Trough 29.9 mcg/mL (10.0-20.0) H Vancomycin Last Dose Date 11/12/21 Vancomycin Last Dose Time 0900 Laboratory Tests 11/12/21 18:40 Laboratory Tests 11/12/21 18:40 Physical Exam: GENERAL: No apparent distress. Alert and oriented. HEENT: Head normocephalic, atraumatic. NECK: Supple LUNGS: Clear to auscultation. HEART: RRR, S1, S2 present, pulses intact ABDOMEN: Soft, positive bowel sounds. EXTREMITIES: No cyanosis or edema. NEUROLOGIC: Normal speech, normal tone PSYCHIATRIC: Normal affect, normal mood. SKIN: No ulceration. Assessment & Plan: A/P 56y transferred after being found at home unconscious 1.) Vulvar lesion left side hypertrophied and nontender. Present for last [address] revealed the followin. Asymmetric left vulvar enhancement and edema consistent with cellulitis/phlegmonous change with a small thin central area measuring approximately 1.4 x 0.9 x 1.1 cm demonstrating central fluid attenuation and peripheral enhancement concerning for small/developing abscess. No subcutaneous emphysema. 2. Intra-abdominal pelvic free fluid and body wall anasarca. Since not abscess is small, continued antibiotics would be more effective tx over I&D. 2.) Sepsis ID consulted. WBC 30.2 -> 15.5, BCx pending. On Zosyn/Vanc 3.) Severe anemia Hgb 4.5 -> 2U pRBC -> 7.8. Underlining cause could be from several reason (ie malnutrition), unlikely acute blood loss. W/u and tx per hospitalist 4.) Metabolic acidosis - improving 5.) Scant medical care has been hesitant to seek medical care due to insurance issues. 6.) H/o MONICA 7.) Hypotension resovled 8.) Alcoholism management per hospitalists 9.) PCN All 10.) Will cont to follow HOLLY LAUREN MD Nov 13, 2021 12:39
[2021-11-13 14:02] LABS: CALCIUM 6.9 mg/dL (8.5-10.1); CREATININE 0.9 mg/dL (0.6-1.0); GFR 78.4
[2021-11-13 14:06] LABS: POTASSIUM 2.9 mmol/L (3.5-5.1)
[2021-11-13] MEDS ORDERED: POTASSIUM CHLORIDE 20 MEQ TABLET.ER. PO ONE (14:15)
[2021-11-13] MEDS ORDERED: POTASSIUM CHLORIDE 20MEQ 100 ML IV ONE (14:30)
[2021-11-13 15:00] VITALS: BP 120/69
[2021-11-13 19:35] VITALS: BP 103/75
[2021-11-13 23:04] VITALS: BP 100/77
[2021-11-14 03:27] VITALS: BP 103/68
[2021-11-14] MEDS: PIPERACILLIN/TAZOBACTAM 3.375 GM in IV NORMAL SALINE 50ML 50 ML IV SCH ×3 (06:00→18:00)
[2021-11-14 07:00] VITALS: BP 106/77
[2021-11-14] MEDS: LACTOBACILLUS RHAMNOSUS GG 1 CAPSULE. PO SCH (08:11)
[2021-11-14] MEDS: NICOTINE 21MG PATCH. TD SCH (08:11)
--- NOTE | 2021-11-14 10:57 | PDOC ---
[employer] PROGRESS NOTE Date of Service DOS: DATE: 11/14/21 TIME: 10:56 Chief Complaint Chief Complaint Acute encephalopathy -metabolic from septic shock, alcohol. Monitor mental status Acute anemia - transfuse to maintain Hb >7. No clear loss, she denies GI losses. Abnormal weight loss -unintentional. Has not had any cancer screenings in 10 years never had a colonoscopy CT chest abdomen pelvis with no discrete masses other than early mons pubis abscess. Septic shock - no clear source outside of possible vaginal abscess. Blood cultures obtained prior to transfer. Will f/u results. Cont empiric vancomycin, rocephin. ID consulted. Wean pressors as tolerated Vaginal swelling/abscess -present for 3 months. No real Guynn follow-up since hysterectomy 20 years ago. department secretary consulted. Empiric vancomycin and Rocephin ordered. Lactic acidosis - likely due to septic shock. Metabolic acidosis - due to sepsis, alcohol JASE - likely vasomotor nephropathy from septic shock. Will monitor renal function Right forehead laceration - likely from fall. Negative CT head. [address] Transaminitis - consistent with alcoholic hepatitis pattern. Some shock liver likely as well. Will monitor LFTs. Banana bag Alcohol abuse - CIWA in place, 1x banana bag Severe protein calorie malnutrition - due to poor eating habits and alcohol abuse. FEN - Regular diet PPX - holding lovenox for acute anemia FULL CODE Dispo - Med/surg History of Present Illness History of Present Illness Ms Mcintosh is a 56 yo female with PMHx HTN who was brought to [facility] in [place], [place] after she was found down by EMS because the neighbors called the police due to a dog barking our patient was found on the ground in the doorway half and half outside the house at the back door and minimally responsive given Narcan in the field by police and did not respond to this. [facility] was found at home that was littered with liquor bottles and she was unkempt. Hypotensive on arrival 50/30 central line Levophed therapy initiated Hb noted to be 4.5. WBC 16.1, Hb 4.5, platelets 553, NA 146, K3.4, HCO3 6, anion gap 35, BUN 12, CR 1.3, AST 440, ALT 81, bilirubin 5.1, calcium 7.9, alkaline phosphatase 547, albumin 1.4, lipase 2691, ammonia 45, NT proBNP 231, urinalysis elevated specific gravity with proteinuria ketonuria bilirubin, negative nitrites negative leuk esterase. Rapid COVID 19 antigen negative. INR 1.2, D-dimer 2.23, ethanol 53 mg/Margaret, lactic acid 8.1, high-sensitivity troponin is 7 ABG 7.051/17/188 on 4 L/min nasal cannula EKG sinus rate of 73 bpm left bundle branch block QTC [address] segment elevations or TWI Chest radiograph with no acute abnormalities. CT head without acute abnormalities CT chest no pulmonary embolism CT abdomen pelvis with severe hepatic steatosis, gallstones and inflammation of the mons pubis with small 9 mm abscess along its left aspect. Seen bedside [facility] more awake and alert after IV fluid resuscitation still requiring low-dose Levophed to maintain blood pressure. She is able to relate that she has lost approximately 40 pounds over the last 3 months and noted painful swelling of her left labia majora and was afraid to go see a physician because she lacks insurance. She has been living in [facility] for the last 4 years has a son in [place] where she used to live and as well as [place]. She does smoke every day and drinks half a pint of alcohol at least 3 days a week. States she does not use illicit drugs. Historically she was diagnosed with hypertension and has not been on any medications for this. She had a hysterectomy over 20 years ago. 11/12: Hb 7.8. HR improved blood pressure still requiring low-dose Levophed. Overall a little bit improved still very weak. Appetite this morning. CT pelvis small abscess, no surg plans. 11/13: Potassium improved awaiting morning labs. Very weak with therapy feels symptomatically improved Hb stable. Transfer to [facility]. Discussed with Medicaid Eligibility Specialist, Dr. Painting, no surgical plans will manage medically with antibiotics. Negative syphilis negative gonococcal and Chlamydia test. 11/14: Potassium improved. Stronger today getting around with therapy wants to go home to see her dog. WBC normalized Hb stable. Plan for home on Augmentin and doxycycline given her urine and blood cultures from admission. No growth to date. She needs FOOT WORKER follow-up outpatient in [place]. Consults: ID, Medicaid Eligibility Specialist Vitals/I&O Vitals/I&O: Vital Signs Date Time Temp Pulse Resp B/P (MAP) Pulse Ox O2 Delivery O2 Flow Rate FiO2 11/14/21 08:31 Room Air 11/14/21 07:00 97.8 91 20 106/77 (87) 98 97.8 I & O 11/13/21 11/13/21 11/14/21 15:00 23:00 07:00 Intake Total 480 ml Balance 480 ml Physical Exam Physical Exam: GENERAL: Alert, oriented x 3 female, lying in bed comfortably, in no acute distress. HEENT: Normocephalic, atraumatic. Anicteric. No thrush. Oral mucosa pale. NECK: Supple, no JVD. LUNGS: Clear bilaterally. HEART: S1, S2. No murmurs. ABDOMEN: Soft, nontender, nondistended, no rebound or guarding. PELVIS: Left mons pubis swelling present, foul smelling drainage present, tenderness present. Vaginal exam not done. EXTREMITIES: No edema, no cyanosis, unkempt. Hyperkeratosis of both feet with calluses on the plantar aspect. DERMATOLOGIC: Warm, dry, no generalized rash except for above. NEUROLOGIC: Alert, oriented x 3, grossly nonfocal. PSYCHIATRIC: Calm and cooperative. LABORATORY DATA: WBC is 30.2 here, hemoglobin of 6.5, hematocrit 21.2, platelets 484. Lactate here was 0.8. Sodium 143, potassium 3.9, chloride 106, bicarb 8, BUN 11, creatinine 1.0. Lactate dehydrogenase 282. IMAGING: None here. General: Alert, Oriented X3, Cooperative, No acute distress Heart: Regular rate, Normal S1, Normal S2, No murmurs Abdomen: Normal bowel sounds, Soft, No tenderness, No hepatosplenomegaly, No masses Extremities: No clubbing, No cyanosis, No edema, Normal pulses, No tenderness/swelling Skin: No rashes, No breakdown Labs Labs: Laboratory Tests Test 11/13/21 12:00 Sodium Level 138 mmol/L (136-145) Potassium Level 2.9 mmol/L (3.5-5.1) Chloride Level 108 mmol/L (98-107) Carbon Dioxide Level 18 mmol/L (21-32) Anion Gap 12 (6-14) Blood Urea Nitrogen 5 mg/dL (7-20) Creatinine 0.9 mg/dL (0.6-1.0) Estimated GFR (Cockcroft-Gault) 78.4 Glucose Level 113 mg/dL (70-99) Calcium Level 6.9 mg/dL (8.5-10.1) Comment Review of Relevant I have reviewed the following items dorothy (where applicable) has been applied. Medications: Current Medications Medications (Trade) Dose Ordered Sig/Aubrey Route PRN Reason Start Time Stop Time Status Last Admin Dose Admin Potassium Chloride (Klor-Con) 40 meq 1X ONCE PO 11/13/21 14:15 11/13/21 14:16 DC 11/13/21 15:12 Potassium Chloride/Water 100 ml @ 50 mls/hr 1X ONCE IV 11/13/21 14:30 11/13/21 16:29 DC 11/13/21 15:13 Justifications for Admission Other Justification ANGEL SANTOS MD Nov 14, 2021 10:57
[2021-11-14 11:00] VITALS: BP 103/77
--- NOTE | 2021-11-14 11:27 | PDOC ---
Infectious Disease Note Subjective: Subjective pt is feeling better Vital Signs: Vital Signs Vital Signs Date Time Temp Pulse Resp B/P (MAP) Pulse Ox O2 Delivery O2 Flow Rate FiO2 11/14/21 08:31 Room Air 11/14/21 07:00 97.8 91 20 106/77 (87) 98 97.8 Physical Exam: PHYSICAL EXAM GENERAL: Alert, oriented x 3 female, in no acute distress. HEENT: Normocephalic, atraumatic. Anicteric. No thrush. Oral mucosa pale. NECK: Supple, no JVD. LUNGS: Clear bilaterally. HEART: S1, S2. No murmurs. ABDOMEN: Soft, nontender, nondistended, no rebound or guarding. PELVIS not done EXTREMITIES: No edema, no cyanosis, unkempt. Hyperkeratosis of both feet with calluses on the plantar aspect. DERMATOLOGIC: Warm, dry, no generalized rash except for above. NEUROLOGIC: Alert, oriented x 3, grossly nonfocal. PSYCHIATRIC: Calm and cooperative. RT IJ clean Medications: Inpatient Meds: Medications reviewed. Labs: Lab Laboratory Tests Test 11/13/21 12:00 Sodium Level 138 mmol/L (136-145) Potassium Level 2.9 mmol/L (3.5-5.1) Chloride Level 108 mmol/L (98-107) Carbon Dioxide Level 18 mmol/L (21-32) Anion Gap 12 (6-14) Blood Urea Nitrogen 5 mg/dL (7-20) Creatinine 0.9 mg/dL (0.6-1.0) Estimated GFR (Cockcroft-Gault) 78.4 Glucose Level 113 mg/dL (70-99) Calcium Level 6.9 mg/dL (8.5-10.1) Objective: Assessment: 1. Severe sepsis. 2. Leukocytosis. 3. Anemia, severe, status post blood transfusions. 4. Severe metabolic acidosis. 5. Left labial abscess. 6. Hypertension. 7. ETOH dependence. 8. Smoking. 9. Poor living condition. 10. History of ALLERGIES TO PENICILLIN WITH HIVES,pt states she has tolerated amoxicillin. Plan: Plan of Care cont antibiotics when ready for dc can transition to po augmentin and doxycycline for 10 days bc and uc neg so far cont supportive care Local wound care d/w RN and SANDI Alejandro MD Nov 14, 2021 11:27
--- NOTE | 2021-11-14 11:27 | PDOC ---
Infectious Disease Note Subjective: Subjective Late entry for exam on 11/13 at 11;30 am pt is feeling better Vital Signs: Vital Signs Vital Signs Date Time Temp Pulse Resp B/P (MAP) Pulse Ox O2 Delivery O2 Flow Rate FiO2 11/14/21 08:31 Room Air 11/14/21 07:00 97.8 91 20 106/77 (87) 98 97.8 Physical Exam: PHYSICAL EXAM GENERAL: Alert, oriented x 3 female, in no acute distress. HEENT: Normocephalic, atraumatic. Anicteric. No thrush. Oral mucosa pale. NECK: Supple, no JVD. LUNGS: Clear bilaterally. HEART: S1, S2. No murmurs. ABDOMEN: Soft, nontender, nondistended, no rebound or guarding. PELVIS not done EXTREMITIES: No edema, no cyanosis, unkempt. Hyperkeratosis of both feet with calluses on the plantar aspect. DERMATOLOGIC: Warm, dry, no generalized rash except for above. NEUROLOGIC: Alert, oriented x 3, grossly nonfocal. PSYCHIATRIC: Calm and cooperative. Medications: Inpatient Meds: Medications reviewed. Labs: Lab Laboratory Tests Test 11/13/21 12:00 Sodium Level 138 mmol/L (136-145) Potassium Level 2.9 mmol/L (3.5-5.1) Chloride Level 108 mmol/L (98-107) Carbon Dioxide Level 18 mmol/L (21-32) Anion Gap 12 (6-14) Blood Urea Nitrogen 5 mg/dL (7-20) Creatinine 0.9 mg/dL (0.6-1.0) Estimated GFR (Cockcroft-Gault) 78.4 Glucose Level 113 mg/dL (70-99) Calcium Level 6.9 mg/dL (8.5-10.1) Objective: Assessment: 1. Severe sepsis. 2. Leukocytosis. 3. Anemia, severe, status post blood transfusions. 4. Severe metabolic acidosis. 5. Left labial abscess. 6. Hypertension. 7. ETOH dependence. 8. Smoking. 9. Poor living condition. 10. History of ALLERGIES TO PENICILLIN WITH HIVES,pt states she has tolerated amoxicillin. Plan: Plan of Care cont antibiotics cont supportive care Train Starter following SANDI LUCIO MD Nov 14, 2021 11:27
[2021-11-14 11:33] LABS: BASO # 0.1 x10^3/uL (0.0-0.2); BASO % 1 % (0-3); EOS # 0.1 x10^3/uL (0.0-0.7); EOS % 1 % (0-3); HEMOGLOBIN 7.7 g/dL (12.0-15.5); LYMPH # 2.6 x10^3/uL (1.0-4.8); LYMPH % 20 % (24-48); MEAN CORPUSCULAR HEMOGLOBIN 28 pg (25-35); MEAN CORPUSCULAR HGB CONC 33 g/dL (31-37); MEAN CORPUSCULAR VOLUME 83 fL (79-100); MONO # 0.6 x10^3/uL (0.0-1.1); MONO % 5 % (0-9); NEUT # 9.9 x10^3/uL (1.8-7.7); NEUT % 74 % (31-73); PLATELET COUNT 252 x10^3/uL (140-400); RED BLOOD COUNT 2.78 x10^6/uL (3.50-5.40); RED CELL DISTRIBUTION WIDTH 21.2 % (11.5-14.5); WHITE BLOOD COUNT 13.4 x10^3/uL (4.0-11.0)
[2021-11-14 11:47] LABS: ALBUMIN/GLOBULIN RATIO 0.2 (1.0-1.7); CALCIUM 6.7 mg/dL (8.5-10.1); CREATININE 0.9 mg/dL (0.6-1.0); GFR 78.4; POTASSIUM 3.4 mmol/L (3.5-5.1); TOTAL BILIRUBIN 4.9 mg/dL (0.2-1.0); TOTAL PROTEIN 5.6 g/dL (6.4-8.2)
--- NOTE | 2021-11-14 12:13 | PDOC ---
BUSINESS SOLUTION ANALYST PROGRESS NOTE Date of Service: DATE: 11/14/21 TIME: 12:13 Subjective: Pt feels better. Objective: Vital Signs: Vital Signs Date Time Temp Pulse Resp B/P (MAP) Pulse Ox O2 Delivery O2 Flow Rate FiO2 11/13/21 07:00 98.4 103 16 102/68 (79) 97 Room Air 98.4 Vital Signs Date Time Temp Pulse Resp B/P (MAP) Pulse Ox O2 Delivery O2 Flow Rate FiO2 11/14/21 11:00 98.0 100 20 103/77 (86) 96 Room Air 98.0 Labs: Laboratory Tests Test 11/14/21 11:15 White Blood Count 13.4 x10^3/uL (4.0-11.0) H Red Blood Count 2.78 x10^6/uL (3.50-5.40) L Hemoglobin 7.7 g/dL (12.0-15.5) L Hematocrit 23.0 % (36.0-47.0) L Mean Corpuscular Volume 83 fL (79-100) Mean Corpuscular Hemoglobin 28 pg (25-35) Mean Corpuscular Hemoglobin Concent 33 g/dL (31-37) Red Cell Distribution Width 21.2 % (11.5-14.5) H Platelet Count 252 x10^3/uL (140-400) Neutrophils (%) (Auto) 74 % (31-73) H Lymphocytes (%) (Auto) 20 % (24-48) L Monocytes (%) (Auto) 5 % (0-9) Eosinophils (%) (Auto) 1 % (0-3) Basophils (%) (Auto) 1 % (0-3) Neutrophils # (Auto) 9.9 x10^3/uL (1.8-7.7) H Lymphocytes # (Auto) 2.6 x10^3/uL (1.0-4.8) Monocytes # (Auto) 0.6 x10^3/uL (0.0-1.1) Eosinophils # (Auto) 0.1 x10^3/uL (0.0-0.7) Basophils # (Auto) 0.1 x10^3/uL (0.0-0.2) Platelet Estimate Pending Sodium Level 141 mmol/L (136-145) Potassium Level 3.4 mmol/L (3.5-5.1) L Chloride Level 111 mmol/L (98-107) H Carbon Dioxide Level 18 mmol/L (21-32) L Anion Gap 12 (6-14) Blood Urea Nitrogen 5 mg/dL (7-20) L Creatinine 0.9 mg/dL (0.6-1.0) Estimated GFR (Cockcroft-Gault) 78.4 BUN/Creatinine Ratio 6 (6-20) Glucose Level 141 mg/dL (70-99) H Calcium Level 6.7 mg/dL (8.5-10.1) L Total Bilirubin 4.9 mg/dL (0.2-1.0) H Aspartate Amino Transferase (AST) 132 U/L (15-37) H Alanine Aminotransferase (ALT) 75 U/L (14-59) H Alkaline Phosphatase 413 U/L (46-116) H Total Protein 5.6 g/dL (6.4-8.2) L Albumin 1.0 g/dL (3.4-5.0) L Albumin/Globulin Ratio 0.2 (1.0-1.7) L Laboratory Tests 11/14/21 11:15 Laboratory Tests 11/14/21 11:15 Laboratory Tests 11/14/21 11:15 Physical Exam: GENERAL: No apparent distress. Alert and oriented. HEENT: Head normocephalic, atraumatic. NECK: Supple LUNGS: Clear to auscultation. HEART: RRR, S1, S2 present, pulses intact ABDOMEN: Soft, positive bowel sounds. EXTREMITIES: No cyanosis or edema. NEUROLOGIC: Normal speech, normal tone PSYCHIATRIC: Normal affect, normal mood. SKIN: No ulceration. Assessment & Plan: A/P 56y transferred after being found at home unconscious 1.) Vulvar lesion left side hypertrophied and nontender. Present for last [address] revealed enhancement and edema consistent with cellulitis/phlegmonous. It revealed a small area (1.4 x 0.9 x 1.1 cm) that was concerning for an abscess. She was also noted to have intra-abdominal pelvic free fluid and body wall anasarca. Recommend antibiotics b/c likely to be more effective tx over I&D. 2.) Sepsis ID consulted. WBC 30.2 -> 15.5 -> 13.4. Left shift has improved 84% -> 74%. BCx pending. On Zosyn/Vanc 3.) Severe anemia Hgb 4.5 -> 2U pRBC -> 7.8. Management per hospitalist 4.) Metabolic acidosis - improving 5.) Scant medical care has been hesitant to seek medical care due to insurance issues. 6.) H/o MONICA 7.) Hypotension resolved 8.) Alcoholism management per hospitalist 9.) PCN All 10.) Will cont to follow HOLLY LAUREN MD Nov 14, 2021 12:13
[2021-11-14 13:10] LABS: % EOS 1 % (0-5); % LYMPHS 8 % (24-48); % MONOS 4 % (0-10); % SEGS 87 % (35-66); BURR CELLS PRESENT; HYPOCHROMIA MOD; PLT ESTIMATE ADEQUATE (ADEQUATE)
[2021-11-14 13:11] LABS: ANISOCYTOSIS MOD
[2021-11-14] MEDS ORDERED: DOXY-181 PO (13:58)
[2021-11-14] MEDS ORDERED: LACT1CAP19 PO (13:58)
[2021-11-14] MEDS ORDERED: AMOX1TAB11 PO (13:58)
--- NOTE | 2021-11-14 14:12 | PDOC3 ---
Discharge Summary Visit Information Date of Admission: Nov 11, 2021 Date of Discharge: Nov 14, 2021 Admitting Diagnosis: Sepsis, pubic abscess Final Diagnosis Sepsis, pubic abscess Brief Hospital Course Allergies Allergies Coded Allergies Type Severity Reaction Last Updated Verified Penicillins Allergy Intermediate 11/11/21 Yes Vital Signs Vital Signs Date Time Temp Pulse Resp B/P (MAP) Pulse Ox O2 Delivery O2 Flow Rate FiO2 11/14/21 11:00 98.0 100 20 103/77 (86) 96 Room Air 98.0 Lab Results Laboratory Tests Test 11/12/21 18:40 11/12/21 21:00 11/13/21 12:00 11/14/21 11:15 Potassium Level 3.4 mmol/L (3.5-5.1) 2.9 mmol/L (3.5-5.1) 3.4 mmol/L (3.5-5.1) Vancomycin Level Trough 29.9 mcg/mL (10.0-20.0) Vancomycin Last Dose Date 11/12/21 Vancomycin Last Dose Time 0900 Sodium Level 138 mmol/L (136-145) 141 mmol/L (136-145) Chloride Level 108 mmol/L (98-107) 111 mmol/L (98-107) Carbon Dioxide Level 18 mmol/L (21-32) 18 mmol/L (21-32) Anion Gap 12 (6-14) 12 (6-14) Blood Urea Nitrogen 5 mg/dL (7-20) 5 mg/dL (7-20) Creatinine 0.9 mg/dL (0.6-1.0) 0.9 mg/dL (0.6-1.0) Estimated GFR (Cockcroft-Gault) 78.4 78.4 Glucose Level 113 mg/dL (70-99) 141 mg/dL (70-99) Calcium Level 6.9 mg/dL (8.5-10.1) 6.7 mg/dL (8.5-10.1) White Blood Count 13.4 x10^3/uL (4.0-11.0) Red Blood Count 2.78 x10^6/uL (3.50-5.40) Hemoglobin 7.7 g/dL (12.0-15.5) Hematocrit 23.0 % (36.0-47.0) Mean Corpuscular Volume 83 fL (79-100) Mean Corpuscular Hemoglobin 28 pg (25-35) Mean Corpuscular Hemoglobin Concent 33 g/dL (31-37) Red Cell Distribution Width 21.2 % (11.5-14.5) Platelet Count 252 x10^3/uL (140-400) Neutrophils (%) (Auto) 74 % (31-73) Lymphocytes (%) (Auto) 20 % (24-48) Monocytes (%) (Auto) 5 % (0-9) Eosinophils (%) (Auto) 1 % (0-3) Basophils (%) (Auto) 1 % (0-3) Neutrophils # (Auto) 9.9 x10^3/uL (1.8-7.7) Lymphocytes # (Auto) 2.6 x10^3/uL (1.0-4.8) Monocytes # (Auto) 0.6 x10^3/uL (0.0-1.1) Eosinophils # (Auto) 0.1 x10^3/uL (0.0-0.7) Basophils # (Auto) 0.1 x10^3/uL (0.0-0.2) Segmented Neutrophils % 87 % (35-66) Lymphocytes % 8 % (24-48) Monocytes % 4 % (0-10) Eosinophils % 1 % (0-5) Platelet Estimate Adequate (ADEQUATE) Hypochromasia Mod Anisocytosis Mod Frankenmuth Cells Present BUN/Creatinine Ratio 6 (6-20) Total Bilirubin 4.9 mg/dL (0.2-1.0) Aspartate Amino Transf (AST/SGOT) 132 U/L (15-37) Alanine Aminotransferase (ALT/SGPT) 75 U/L (14-59) Alkaline Phosphatase 413 U/L (46-116) Total Protein 5.6 g/dL (6.4-8.2) Albumin 1.0 g/dL (3.4-5.0) Albumin/Globulin Ratio 0.2 (1.0-1.7) Laboratory Tests Test 11/14/21 11:15 White Blood Count 13.4 x10^3/uL (4.0-11.0) Red Blood Count 2.78 x10^6/uL (3.50-5.40) Hemoglobin 7.7 g/dL (12.0-15.5) Hematocrit 23.0 % (36.0-47.0) Mean Corpuscular Volume 83 fL (79-100) Mean Corpuscular Hemoglobin 28 pg (25-35) Mean Corpuscular Hemoglobin Concent 33 g/dL (31-37) Red Cell Distribution Width 21.2 % (11.5-14.5) Platelet Count 252 x10^3/uL (140-400) Neutrophils (%) (Auto) 74 % (31-73) Lymphocytes (%) (Auto) 20 % (24-48) Monocytes (%) (Auto) 5 % (0-9) Eosinophils (%) (Auto) 1 % (0-3) Basophils (%) (Auto) 1 % (0-3) Neutrophils # (Auto) 9.9 x10^3/uL (1.8-7.7) Lymphocytes # (Auto) 2.6 x10^3/uL (1.0-4.8) Monocytes # (Auto) 0.6 x10^3/uL (0.0-1.1) Eosinophils # (Auto) 0.1 x10^3/uL (0.0-0.7) Basophils # (Auto) 0.1 x10^3/uL (0.0-0.2) Segmented Neutrophils % 87 % (35-66) Lymphocytes % 8 % (24-48) Monocytes % 4 % (0-10) Eosinophils % 1 % (0-5) Platelet Estimate Adequate (ADEQUATE) Hypochromasia Mod Anisocytosis Mod Frankenmuth Cells Present Sodium Level 141 mmol/L (136-145) Potassium Level 3.4 mmol/L (3.5-5.1) Chloride Level 111 mmol/L (98-107) Carbon Dioxide Level 18 mmol/L (21-32) Anion Gap 12 (6-14) Blood Urea Nitrogen 5 mg/dL (7-20) Creatinine 0.9 mg/dL (0.6-1.0) Estimated GFR (Cockcroft-Gault) 78.4 BUN/Creatinine Ratio 6 (6-20) Glucose Level 141 mg/dL (70-99) Calcium Level 6.7 mg/dL (8.5-10.1) Total Bilirubin 4.9 mg/dL (0.2-1.0) Aspartate Amino Transf (AST/SGOT) 132 U/L (15-37) Alanine Aminotransferase (ALT/SGPT) 75 U/L (14-59) Alkaline Phosphatase 413 U/L (46-116) Total Protein 5.6 g/dL (6.4-8.2) Albumin 1.0 g/dL (3.4-5.0) Albumin/Globulin Ratio 0.2 (1.0-1.7) Brief Hospital Course Ms Mcintosh is a 56 yo female with PMHx HTN who was brought to [facility] in [place], [place] after she was found down by EMS because the neighbors called the police due to a dog barking our patient was found on the ground in the doorway half and half outside the house at the back door and minimally responsive given Narcan in the field by police and did not respond to this. Transferred from [facility] was found at home that was littered with liquor bottles and she was unkempt. Hypotensive on arrival 50/30 central line Levophed therapy initiated Hb noted to be 4.5. WBC 16.1, Hb 4.5, platelets 553, NA 146, K3.4, HCO3 6, anion gap 35, BUN 12, CR 1.3, AST 440, ALT 81, bilirubin 5.1, calcium 7.9, alkaline phosphatase 547, albumin 1.4, lipase 2691, ammonia 45, NT proBNP 231, urinalysis elevated specific gravity with proteinuria ketonuria bilirubin, negative nitrites negative leuk esterase. Rapid COVID 19 antigen negative. INR 1.2, D-dimer 2.23, ethanol 53 mg/Margaret, lactic acid 8.1, high-sensitivity troponin is 7 ABG 7.051/17/188 on 4 L/min nasal cannula EKG sinus rate of 73 bpm left bundle branch block QTC [address] segment elevations or TWI Chest radiograph with no acute abnormalities. CT head without acute abnormalities CT chest no pulmonary embolism CT abdomen pelvis with severe hepatic steatosis, gallstones and inflammation of the mons pubis with small 9 mm abscess along its left aspect. Seen bedside [facility] more awake and alert after IV fluid resuscitation still requiring low-dose Levophed to maintain blood pressure. She is able to relate that she has lost approximately 40 pounds over the last 3 months and noted painful swelling of her left labia majora and was afraid to go see a physician because she lacks insurance. She has been living in [facility] for the last 4 years has a son in [place] where she used to live and as well as [place]. She does smoke every day and drinks half a pint of alcohol at least 3 days a week. States she does not use illicit drugs. Historically she was diagnosed with hypertension and has not been on any medications for this. She had a hysterectomy over 20 years ago. 11/12: Hb 7.8. HR improved blood pressure still requiring low-dose Levophed. Overall a little bit improved still very weak. Appetite this morning. CT pelvis small abscess, no surg plans. 11/13: Potassium improved awaiting morning labs. Very weak with therapy feels symptomatically improved Hb stable. Transfer to [facility]. Discussed with [employer], Dr. Painting, no surgical plans will manage medically with antibiotics. Negative syphilis negative gonococcal and Chlamydia test. 11/14: Potassium improved. Stronger today getting around with therapy wants to go home to see her dog. WBC normalized Hb stable. Plan for home on Augmentin and doxycycline given her urine and blood cultures from admission. No growth to carlos e. She needs [facility] SAX[facility]ON[facility] follow-up outpatient in [place]. Consults: ID, [employer] Problem list: Acute encephalopathy -metabolic from septic shock, alcohol. Resolved Acute anemia - transfused 2u PRBC to maintain Hb >7. No clear loss, she denies GI losses. Abnormal weight loss - Has not had any cancer screenings in 10 years never had a colonoscopy CT chest abdomen pelvis with no discrete masses Septic shock - no clear source outside of vaginal abscess. Blood cultures neg prior to transfer. Will f/u results. Cont empiric vancomycin, rocephin. ID consulted. Weaned pressors Vaginal swelling/abscess -present for 3 months. No real [facility] follow-up since hysterectomy 20 years ago. breast surgeon consulted. Empiric vancomycin and Rocephin ordered. Doxy + Amox Lactic acidosis - likely due to septic shock. Metabolic acidosis - due to sepsis, alcohol JASE - likely vasomotor nephropathy from septic shock. Will monitor renal function Right forehead laceration - likely from fall. Negative CT head. [address] Transaminitis - consistent with alcoholic hepatitis pattern. Some shock liver likely as well. Improving, but alk phos elevated Alcohol abuse - CIWA in place, 1x banana bag Severe protein calorie malnutrition - due to poor eating habits and alcohol abuse. Greater than 30 minutes spent on d/c home Discharge Information Condition at Discharge: Improved Follow Up: Weeks (1) Disposition/Orders: D/C to Home Scheduled Amoxicillin/Potassium Clav (Amox Tr-K Clv 875-125 Mg Tab) 1 Each Tablet, 1 TAB PO BID for Abscess for 10 Days, #20 Prescribed by: ANGEL SANTOS MD on 11/14/21 1358 Doxycycline Monohydrate (Doxycycline Monohydrate) 100 Mg Capsule, 1 CAP PO BID for Abscess for 10 Days, #20 Prescribed by: ANGEL SANTOS MD on 11/14/21 1358 Lactobacillus Rhamnosus Gg (Culturelle) 1 Each Cap.sprink, 1 CAP PO BID for Abscess for 10 Days, #20 Prescribed by: ANGEL SANTOS MD on 11/14/21 1358 Justicifation of Admission Dx: Justifications for Admission: Justification of Admission Dx: Yes ANGEL SANTOS MD Nov 14, 2021 14:11
[2021-11-14] MEDS ORDERED: POTASSIUM CHLORIDE 20 MEQ TABLET.ER. PO ONE (14:30)
[2021-11-14 15:00] VITALS: BP 96/70
--- NOTE | 2021-11-14 19:06 | NUR ---
Discharge Note: AGAPITO MADISON Discharge instructions and discharge home medications reviewed with and a copy given. All questions have been answered and understanding verbalized. The following instructions and handouts were given: Diet, activity, medication list and follow up instructions provided to patient. Taxi voucher provided to patient. Discontinued lines and drains: Central Line TL discontinued and catheter intact. Patient discharged to Home or Self Care with Self via Wheelchair
== END 2021-11-14 19:09 | disposition home or self-care (01) | DRG 871 ==
LOC: 1 WEST ICU 04:50 → 4 NORTH 11-12 18:30
PROVIDERS: ADMIT Internal Medicine; ATTEND Internal Medicine
PROC: 30233N1 Transfusion of Nonautologous Red Blood Cells into Peripheral Vein, Percutaneous Approach (ICD-10-PCS; principal; 2021-11-11)
DX: A41.9 Sepsis, unspecified organism (principal); E43 Unspecified severe protein-calorie malnutrition; G93.41 Metabolic encephalopathy; K72.00 Acute and subacute hepatic failure without coma; N17.0 Acute kidney failure with tubular necrosis; R65.21 Severe sepsis with septic shock; E87.2 Acidosis; L02.215 Cutaneous abscess of perineum; N76.4 Abscess of vulva; D64.9 Anemia, unspecified; F10.20 Alcohol dependence, uncomplicated; F17.210 Nicotine dependence, cigarettes, uncomplicated; I10 Essential (primary) hypertension; Y90.9 Presence of alcohol in blood, level not specified; I44.7 Left bundle-branch block, unspecified; K76.0 Fatty (change of) liver, not elsewhere classified; K80.20 Calculus of gallbladder without cholecystitis without obstruction; S01.81XA Laceration without foreign body of other part of head, initial encounter; W18.30XA Fall on same level, unspecified, initial encounter; Y93.89 Activity, other specified; Y92.89 Other specified places as the place of occurrence of the external cause; Y99.8 Other external cause status; Z82.49 Family history of ischemic heart disease and other diseases of the circulatory system; Z88.0 Allergy status to penicillin; Z90.710 Acquired absence of both cervix and uterus; Z68.22 Body mass index [BMI] 22.0-22.9, adult
CPT/HCPCS: 36415; 36430; 71045; 72193; 80048; 80053; 80202; 82962; 83036; 83605; 83615; 83735; 84100; 84132; 85007; 85014; 85018; 85025; 85045; 85610; 85730; 86592; 86850; 86900; 86901; 86920; 87491; 87591; J0696; J2543; J3370; J3411; J3475; J3480; J3490; J7030; J7040; J7050; J7060; P9016; Q9967; 97116-GP; 97530-GO; 97530-GP; 97535-GO; G0378